=== PATIENT | female | born 2000 | race Caucasian/White ===

== ENCOUNTER 2023-02-07 13:44 | Outpatient (CLI) | payer OTHER, SELFPAY ==
[2023-02-10 14:10] LABS: Progesterone 0.6 ng/mL (***); Prolactin 4.1 ng/mL (***)
== END 2023-02-07 13:45 | disposition home or self-care (01) ==
PROVIDERS: Visit Provider Obstetrics & Gynecology
DX: N92.6 Irregular menstruation, unspecified (principal)
CPT/HCPCS: 36415; 84144; 84146; 84443